=== PATIENT | female | born 1980 | race Caucasian/White ===

== ENCOUNTER 2021-05-13 20:02 | Emergency (ER) | payer MEDICAID, SELFPAY ==
[2021-05-13 20:03] VITALS: BP 138/113; PULSE 99; RESP 16; TEMP 36.2; O2SAT 100; BMI 54.3
--- NOTE | 2021-05-13 20:32 | EKG12_ITS ---
Test Reason : PALPS Blood Pressure : / mmHG Vent. Rate : 099 BPM Atrial Rate : 099 BPM P-R Int : 160 ms QRS Dur : 082 ms QT Int : 344 ms P-R-T Axes : 035 -15 031 degrees QTc Int : 441 ms Normal sinus rhythm Normal ECG Confirmed by FERMIN BIRMINGHAM, KITA ([id number]), story editor KEYUR SAEED ([id number]) on 05/19/2021 9:27:46 AM Referred By: ESCOBAR Confirmed By:KITA CHRISTENSEN MD
--- NOTE | 2021-05-13 20:33 | EX.ED.DYSGE1 ---
HPI History of Present Illness Chief Complaint: Palpitations Narrative Narrative: 41-year-old female presenting with palpitations. She states this started about 2-1/2 hours ago while she was watching her kids in karate class. Patient states he had this occur on 05/09/2021 and went to [facility] and was told she had mildly low magnesium and a mildly low potassium. Her heart enzymes are negative x2. Otherwise her work-up was unremarkable. She has not had any symptoms since that time. She does states she has a history of hypokalemia. Patient is on no medications that would cause her to have hypokalemia. PFSH PFSH Allergy/AdvReac Type Severity Reaction Status Date / Time naproxen [From Naprosyn] Allergy Hives Verified 05/13/21 20:44 pineapple Allergy Hives Verified 05/13/21 20:44 magnesium sulfate AdvReac Other Verified 05/13/21 20:44 Social History Smoking Status: Current every day smoker tobacco type: cigarettes ROS ROS ED Constitutional Constitutional ED: Denies chills, fever(s) or sweats Eyes Eyes: Denies blurry vision or change in vision ENT ENT ED: Denies ear pain, rhinorrhea or sore throat Cardiovascular Cardiovascular: Reports palpitations and racing heartbeat; Denies chest pain Respiratory/Chest Respiratory/Chest: Denies cough, dyspnea or sputum Gastrointestinal Gastrointestinal: Reports nausea; Denies abdominal pain, constipation, diarrhea or vomiting Genitourinary Genitourinary ED: Denies dysuria, hematuria or urinary frequency Musculoskeletal Musculoskeletal: Denies arthralgias, myalgias or neck pain Integumentary Denies abscess, Abrasions or rash Neurologic Neurologic: Denies headache(s), paresthesias or weakness Psychiatric Psychiatric: Denies anxiety, depression, suicidal ideation or suicidal thoughts Endocrine Endocrinology: Denies polydipsia or polyuria EXAM Physical Exam Const Vital Signs: 05/13/21 20:03 05/13/21 20:32 05/13/21 20:44 Temperature 97.1 F L Temperature Source Temporal Pulse Rate 99 Respiratory Rate 16 Respiratory Pattern Normal Blood Pressure 138/113 H Blood Pressure Mean 121 Pulse Ox 100 Oxygen Delivery Method Room Air Room Air Positive well nourished General Appearance ED: NAD HEENT Negative for trauma Eyes PERRL and EOMs intact bilaterally General Eye ED: Negative for pale conjunctiva or scleral icterus Resp normal respiratory effort and clear to auscultation bilaterally Cardio regular rate, regular rhythm and no murmurs Extremity normal to inspection General Extremety ED: Negative for edema or tenderness General Extremity: Negative for edema Neuro oriented x3, CN's II-XII intact bilaterally and no sensory deficits noted Sensorium / Orientation: alert Motor Exam: strength 5/5 throughout Psych mental status grossly normal Skin no rashes or lesions noted MDM MDM MDM Narrative Medical decision making narrative: Patient's previous work-up was reviewed from [facility]. Her white blood cell count was 11.3, hemoglobin 14.1, hematocrit 43.0, platelets 296. On her BMP her glucose is 107, 0.8, sodium 137, potassium 3.6 which by their criteria is mildly low with a low end of normal at 3.7. Her other electrolytes are normal. Anion gap is normal. GFR greater than 60. Magnesium was also low at 1.6 with a low end of normal being 1.7 in [facility]. Patient's TSH was also normal at 2.140. Patient's lab work today was unremarkable. Her potassium and magnesium are normal. Patient had EKG which shows a normal sinus rhythm at [address] elevation, depression, dysrhythmia on my interpretation. Chest x-ray on my interpretation shows no acute cardiopulmonary process. Patient counseled if she still continues to have symptoms she will follow-up with her PCP and be referred for Holter monitoring. I do not see any reason to do repeat lab work or imaging at this time. Patient is PERC negative. Her troponin is actually lower than it was previously at 4. Patient will be discharged home in stable conditions. Impression: 1. Palpitations Lab Data Attestation: I reviewed the patient's lab results. Labs: Laboratory Results - last 24 hr 05/13/21 05/13/21 20:40 20:40 WBC 12.1 H RBC 5.19 Hgb 15.1 H Hct 46.6 MCV 89.8 MCH 29.1 MCHC 32.4 RDW Std Deviation 43.1 RDW Coeff of Paola 13.1 Plt Count 316 MPV 10.2 Immature Gran % (Auto) 0.500 Neut % (Auto) 52.4 Lymph % (Auto) 36.8 Beaver % (Auto) 6.6 Eos % (Auto) 2.7 Baso % (Auto) 1.0 Absolute Neuts (auto) 6.3 Absolute Lymphs (auto) 4.44 Nucleated RBC % 0 Sodium 138 Potassium 3.6 Chloride 103 Carbon Dioxide 27.0 Anion Gap 8 BUN 11 Creatinine 0.84 Estim Creat Clear Calc 79.31 Est GFR (MDRD) Af Amer 96 Est GFR (MDRD) Non-Af 80 BUN/Creatinine Ratio 13.1 Glucose 80 Calcium 9.1 Magnesium 2.2 Troponin I High Sens 4.0 Discharge Plan Triage Chief Complaint: Palpitations ED Provider: Mark Michael Dx/Rx/DC Orders Instructions: ED Palpitations Primary Care Provider: Flakita Atwood Referrals: Flakita Atwood DO [Primary Care Provider] - Disposition Disposition: Home, Self Care
--- NOTE | 2021-05-13 20:50 | RAD_ITS ---
HISTORY: chest pain EXAMINATION/TECHNIQUE: XR Chest 1 View: Portable upright AP chest x-ray COMPARISON: None FINDINGS: LINES/DEVICES: None. LUNGS: No consolidation, edema or effusion. No pneumothorax. MEDIASTINUM AND CARDIOVASCULAR STRUCTURES: Cardiac silhouette not enlarged. Central airways and mediastinal contour are unremarkable. BONES AND SOFT TISSUES: No acute bony abnormalities. RAD/Chest 1 View (Portable) IMPRESSION: No radiographic evidence of acute cardiopulmonary disease. at 2122 Reported and signed by: Frankie Francisco MD Electronically Signed: Frankie Francisco MD at 21:21 EDT Tel , Service support ,
[2021-05-13 20:55] LABS: Absolute Lymphocyte Count 4.44 X10^3/uL (0.83-4.51); Absolute Neutrophil Count 6.3 X10^3/uL (2.0-7.7); Basophil# 0.12 X10^3/uL; Eosinophil# 0.32 X10^3/uL; Eosinophils% 2.7 % (0-5); Hematocrit 46.6 % (37-47); Hemoglobin 15.1 g/dL (12.0-15.0); Lymphocyte # 4.44 X10^3/ul (0.83-4.51); Lymphocyte % 36.8 % (19-41); Mean Corp Hgb Conc 32.4 g/dL (32-36); Mean Corpuscular Hgb 29.1 pg (27.0-32.0); Mean Corpuscular Volume 89.8 fL (81-99); Mean Platelet Vol. 10.2 fl (6.2-12.0); Monocyte# 0.79 X10^3/uL; Monocyte% 6.6 % (0-10); NRBC Flagged by Analyzer 0 % (0-5); Neutrophil # 6.33 X10^3/uL (2.7-7.7); Neutrophil % 52.4 % (47-70); Platelet Count 316 K/mm3 (150-450); RBC Distribution Width CV 13.1 % (11.6-14.6); RBC Distribution Width SD 43.1 fl (35.1-43.9); Red Blood Count 5.19 M/mm3 (4.2-5.4); White Blood Count 12.1 K/mm3 (4.4-11.0)
[2021-05-13 21:14] LABS: Anion Gap 8 (5-15); BUN 11 mg/dL (7-18); BUN/Creat Ratio 13.1 RATIO (10-20); Calcium,Total 9.1 mg/dL (8.5-10.1); Chloride 103 mmol/L (98-107); Creatinine, Serum 0.84 mg/dL (0.55-1.02); EST Glomerular Filtration Rate 80 mL/min (>60); Est Glom Filt Rate - Afr Amer 96 mL/min (>60); Estimated Creatinine Clearance 79.31 ml/min; Glucose 80 mg/dL (74-106); Magnesium 2.2 mg/dL (1.6-2.6); Potassium 3.6 mmol/L (3.5-5.1); Sodium Level 138 mmol/L (136-145)
[2021-05-13 21:40] VITALS: BP 139/90
== END 2021-05-13 21:41 | disposition home or self-care (01) ==
PROVIDERS: Emergency Provider Student in an Organized Health Care Education/Training Program; PCP Family Medicine
DX: R00.2 Palpitations (principal); F17.210 Nicotine dependence, cigarettes, uncomplicated
CPT/HCPCS: 71045; 80048; 83735; 84484; 85025; 93005; 99283; A4216

== ENCOUNTER 2021-10-25 23:29 | Emergency (ER) | payer MEDICAID, SELFPAY ==
[2021-10-25 23:31] VITALS: BP 198/101; PULSE 87; RESP 16; TEMP 35.8; O2SAT 99; BMI 47.6
--- NOTE | 2021-10-25 23:46 | EKG12_ITS ---
Test Reason : PALPITATIONS Blood Pressure : / mmHG Vent. Rate : 090 BPM Atrial Rate : 090 BPM P-R Int : 172 ms QRS Dur : 082 ms QT Int : 380 ms P-R-T Axes : 028 -17 013 degrees QTc Int : 464 ms Sinus rhythm with frequent Premature ventricular complexes Otherwise normal ECG Confirmed by FERMIN BIRMINGHAM, KITA ([id number]), web editor KEYUR SAEED ([id number]) on 10/27/2021 10:57:57 AM Referred By: MARK Confirmed By:KITA CHRISTENSEN MD
--- NOTE | 2021-10-25 23:46 | RAD_ITS ---
STUDY: X-RAY CHEST REASON FOR EXAM: Female, 41 years old. chest pain TECHNIQUE: 1 view COMPARISON: 05/13/2021 FINDINGS: Cardiomediastinal silhouette is unremarkable. Costophrenic angles are sharp. Lungs are clear. The trachea is midline. There is no pneumothorax. The bones are grossly intact. RAD/Chest 1 View (Portable) IMPRESSION: No acute cardiopulmonary process. Electronically Signed: Gilberto Rowell MD at 0:13 EST Tel , Service support ,
[2021-10-25 23:52] VITALS: O2SAT 97
[2021-10-25 23:59] LABS: Basophil% 0.8 % (0-1); Eosinophil# 0.27 X10^3/uL; Eosinophils% 2.2 % (0-5); Hematocrit 43.6 % (37-47); Hemoglobin 14.4 g/dL (12.0-15.0); Lymphocyte % 42.5 % (19-41); Mean Corpuscular Hgb 28.8 pg (27.0-32.0); Mean Corpuscular Volume 87.2 fL (81-99); Mean Platelet Vol. 10.3 fl (6.2-12.0); Monocyte# 0.78 X10^3/uL; Monocyte% 6.3 % (0-10); NRBC Flagged by Analyzer 0 % (0-5); Neutrophil # 5.97 X10^3/uL (2.7-7.7); Neutrophil % 47.8 % (47-70); POSITIVE DIFFERENTIAL YES; Platelet Count 312 K/mm3 (150-450); RBC Distribution Width CV 13.8 % (11.6-14.6); White Blood Count 12.5 K/mm3 (4.4-11.0)
[2021-10-26] LABS: Differential Indicated SCAN CRITERIA MET
[2021-10-26 00:25] LABS: Anion Gap 7 (5-15); BUN 16 mg/dL (7-18); BUN/Creat Ratio 18.8 RATIO (10-20); Calcium,Total 8.8 mg/dL (8.5-10.1); Chloride 109 mmol/L (98-107); Creatinine, Serum 0.85 mg/dL (0.55-1.02); EST Glomerular Filtration Rate 78 mL/min (>60); Est Glom Filt Rate - Afr Amer 94 mL/min (>60); Estimated Creatinine Clearance 81.54 ml/min; Glucose 115 mg/dL (74-106); Potassium 3.3 mmol/L (3.5-5.1); Sodium Level 139 mmol/L (136-145); Thyroid Stim Hormone (TSH) 1.35 uIU/mL (0.358-3.74); Troponin-I HS 6 pg/mL (3.0-54.0)
[2021-10-26 00:30] VITALS: PULSE 101; RESP 20; O2SAT 97
[2021-10-26 00:58] LABS: Differential Comment SCANNED
[2021-10-26] MEDS: Mag Hydrox/Al Hydrox/Simeth 30 ML UDC PO (01:04)
[2021-10-26] MEDS: Ondansetron 4 MG/2 ML Vial IV (01:04)
[2021-10-26] MEDS: Famotidine 200 MG/20 ML MDV 20 MG in 0.9% Normal Saline (Pres. free 8 ML 300 MG IV (01:04)
[2021-10-26 01:07] VITALS: BP 144/82; PULSE 73; RESP 18; O2SAT 96
[2021-10-26 01:13] LABS: Magnesium 1.8 mg/dL (1.6-2.6)
[2021-10-26 02:07] LABS: Troponin-I HS 6 pg/mL (3.0-54.0)
[2021-10-26 02:14] VITALS: BP 135/88; PULSE 68; RESP 18; O2SAT 97
[2021-10-26] MEDS: Potassium Chloride Oral Tablet 20 MEQ 40 MEQ PO (02:14)
--- NOTE | 2021-10-26 02:41 | EDS_ITS ---
HPI History of Present Illness Chief Complaint: Palpitations Informant: patient Narrative Narrative: Patient is a 41-year-old female with history of palpitations and PVCs as well as significant reflux since her cholecystectomy 6 weeks ago presenting with palpitations and chest discomfort. Patient notes that since her surgery she has been feeling very gassy and having a lot of indigestions. She is also having palpitations. Her doctor recently put her on metoprolol 25 mg tartrate twice daily 1 week ago and just recently increased her to 1-1/2 pills twice daily. Tonight she had increased frequency of her PVCs and increased sensation of indigestion and gas. She has been having intermittent episodes of vomiting especially if she eats a big meal. Patient notes she ate Arabic food for her 's birthday last night. She is scheduled to get a Holter monitor on Wednesday with her primary care doctor. [facility] Medical History Hypertension Tachycardia Home Medications cetirizine 10 mg tablet 10 mg PO DAILY #30 tab 08/16/21 [Rx Last Taken Unknown] ofloxacin 0.3 % eye drops See Rx Instructions OPHTHALMIC (EYE) .COMPLEX #10 ml 08/16/21 [Rx Last Taken Unknown] potassium chloride 20 meq PO DAILY #5 tab 10/26/21 [Rx Last Taken Unknown] Allergy/AdvReac Type Severity Reaction Status Date / Time naproxen [From Naprosyn] Allergy Hives Verified 10/25/21 23:30 pineapple Allergy Hives Verified 10/25/21 23:30 magnesium sulfate AdvReac Other Verified 10/25/21 23:30 Surgical History History of cholecystectomy Social History Smoking Status: Current every day smoker tobacco type: cigarettes ROS ROS ED Constitutional Constitutional ED: Denies chills or fever(s) ENT ENT ED: Denies rhinorrhea Cardiovascular Cardiovascular: Reports palpitations; Denies chest pain Respiratory/Chest Respiratory/Chest: Denies dyspnea Gastrointestinal Gastrointestinal: Reports abdominal pain, nausea and vomiting; Denies diarrhea Genitourinary Genitourinary ED: Denies dysuria or hematuria Musculoskeletal Musculoskeletal: Denies myalgias Integumentary Denies rash Neurologic Neurologic: Denies headache(s) or weakness Psychiatric Psychiatric: Denies depression EXAM Physical Exam Const Vital Signs: 10/25/21 23:31 10/25/21 23:52 10/26/21 00:30 Temperature 96.5 F L Temperature Source Temporal Pulse Rate 87 101 H Respiratory Rate 16 20 H Respiratory Pattern Normal Blood Pressure 198/101 H Blood Pressure Mean 133 Pulse Ox 99 97 97 Oxygen Delivery Method Room Air Room Air Room Air 10/26/21 01:07 10/26/21 02:14 Temperature Temperature Source Pulse Rate 73 68 Respiratory Rate 18 18 Respiratory Pattern Blood Pressure 144/82 H 135/88 H Blood Pressure Mean 102 103 Pulse Ox 96 97 Oxygen Delivery Method Room Air Positive well nourished and well developed General Appearance ED: well developed HEENT normocephalic and atraumatic Eyes PERRL and EOMs intact bilaterally Neck no lymphadenopathy and supple Chest Wall inspection of chest normal Resp normal respiratory effort Effort and Inspection: respiratory distress Cardio regular rate, regular rhythm and no murmurs Peripheral Pulses: pulses 2+ throughout GI normal to inspection, nondistended, normoactive bowel sounds, soft to palpation, non-tender and non-distended Back/Spine no CVA tenderness Extremity normal to inspection General Extremety ED: Negative for edema or tenderness General Extremity: Negative for edema Neuro oriented x3 Sensorium / Orientation: awake and alert Motor Exam: Negative for general weakness Psych mental status grossly normal Skin no rashes or lesions noted and no wounds Heart Score History: Slightly/Non-Suspicious ECG: Normal Age: </= 45 years Risk Factors: No Risk Factors Troponin: </= Normal Limit Score: 0 MDM MDM MDM Narrative Medical decision making narrative: Patient is evaluated for palpitations, indigestion and vomiting. Patient did vomit while in the emergency room. It is just her food. Her palpitations seem to be correlated with PVCs that she is having on telemetry and on her EKG. She does not have any sequential runs or any V. tach. Patient overall is very well-appearing. She initially was quite hypertensive but she improves without any antihypertensive in the ER. I suspect it is more from her symptoms. Cardiac work-up is largely negative with a normal EKG and normal high-sensitivity troponin. She does have a mild leukocytosis of 12.5 with uncertain etiology. Does not appear any obvious source of infection. Her abdomen is soft nontender. Patient is treated with IV Pepcid and Mylanta with improvement of her symptoms. She is also given a dose of IV Zofran. Her potassium is mildly low at 3.3. She notes when her potassium is even below 3.6 she tends to get more PVCs. She is given oral replacement as well as discharged with a short course of oral potassium. Patient's TSH is normal. I suspect her reflux is the cause of her presentation more than anything today. We did discuss her adding 20 mg Prilosec in the evenings while her reflux is flared up. Patient counseled return precautions. She verbalized agreement of chest pain. Discharged home in stable condition. Lab Data Attestation: I reviewed the patient's lab results. Labs: Laboratory Results - last 24 hr 10/25/21 10/25/21 10/25/21 23:40 23:40 23:40 WBC 12.5 H RBC 5.00 Hgb 14.4 Hct 43.6 MCV 87.2 MCH 28.8 MCHC 33.0 RDW Std Deviation 44.0 H RDW Coeff of Paola 13.8 Plt Count 312 MPV 10.3 Immature Gran % (Auto) 0.400 Neut % (Auto) 47.8 Lymph % (Auto) 42.5 H Warren % (Auto) 6.3 Eos % (Auto) 2.2 Baso % (Auto) 0.8 Absolute Neuts (auto) 6.0 Absolute Lymphs (auto) 5.30 H Nucleated RBC % 0 Differential Comment SCANNED Sodium 139 Potassium 3.3 L Chloride 109 H Carbon Dioxide 23.0 Anion Gap 7 BUN 16 Creatinine 0.85 Estim Creat Clear Calc 81.54 Est GFR (MDRD) Af Amer 94 Est GFR (MDRD) Non-Af 78 BUN/Creatinine Ratio 18.8 Glucose 115 H Calcium 8.8 Magnesium 1.8 Troponin I High Sens 6 TSH 1.35 10/26/21 01:39 WBC RBC Hgb Hct MCV MCH MCHC RDW Std Deviation RDW Coeff of Paola Plt Count MPV Immature Gran % (Auto) Neut % (Auto) Lymph % (Auto) Warren % (Auto) Eos % (Auto) Baso % (Auto) Absolute Neuts (auto) Absolute Lymphs (auto) Nucleated RBC % Differential Comment Sodium Potassium Chloride Carbon Dioxide Anion Gap BUN Creatinine Estim Creat Clear Calc Est GFR (MDRD) Af Amer Est GFR (MDRD) Non-Af BUN/Creatinine Ratio Glucose Calcium Magnesium Troponin I High Sens 6 TSH Radiography Chest X-Ray - ED: 1 View, Read by ED Physician, Read by Radiologist and Normal Diagnostic Testing: Clinical Impression(s) from Imaging Studies Chest X-Ray 10/25/21 23:46 IMPRESSION: No acute cardiopulmonary process. Electronically Signed: Gilberto Rowell MD at 0:13 EST Tel , Service support , Rhythm Strip Rhythm Strip: Sinus Rhythm Rate: 90 Ectopy: PVC(s) EKG Initial EKG: Attestation: I personally reviewed and interpreted this EKG as follows: Interpretation: Sinus Rhythm Comments: Normal sinus rhythm at a rate of 90 with frequent PVCs Normal intervals Normal axis Normal ST segments Compared to prior EKG on 05/13/2021 patient now has PVCs Discharge Plan Triage Chief Complaint: Palpitations ED Provider: Verna Matson Dx/Rx/DC Orders Clinical Impression: Symptomatic PVCs, Hypokalemia, Acid reflux Instructions: ED Hypokalemia, ED Palpitations Prescriptions: New potassium chloride 20 mEq tablet extended release 20 meq PO DAILY Qty: 5 RF: 0 No Action ofloxacin 0.3 % drops See Rx Instructions ophthalmic (eye) .COMPLEX Qty: 10 RF: 0 cetirizine 10 mg tablet 10 mg PO DAILY Qty: 30 RF: 5 Primary Care Provider: Flakita Atwood Referrals: Flakita Atwood DO [Primary Care Provider] - Activity Restrictions/Additional Instructions: Please follow-up with your surgeon who did your cholecystectomy if you continue to have issues with reflux. You might ultimately require an EGD (scope). It is okay for the next week to take an extra dose of antacid in the evening to see if it helps with your reflux. Your heart work-up was normal today. You do have PVCs however they are benign at this time. Disposition Disposition: Home, Self Care Discharge Date/Time: 10/26/21 02:51
== END 2021-10-26 02:51 | disposition home or self-care (01) ==
PROVIDERS: Emergency Provider Emergency Medicine; PCP Family Medicine; Visit Provider Emergency Medicine
DX: I49.3 Ventricular premature depolarization (principal); R07.9 Chest pain, unspecified; E87.6 Hypokalemia; F17.210 Nicotine dependence, cigarettes, uncomplicated; K21.9 Gastro-esophageal reflux disease without esophagitis
CPT/HCPCS: 71045; 80048; 83735; 84443; 84484; 85025; 93005; 96365; 96375; 99285; A4216; J2405; J3490